=== PATIENT | male | born 1995 | race African-American/Black ===

== ENCOUNTER 2019-02-28 17:37 | Emergency (ER) | payer OTHER ==
[2019-02-28 18:09] LABS: Absolute Monocytes 2.7 K/uL (0.1-1.3); Absolute Neutrophil 8.6 K/uL (1.8-8.0); Basophils % 0.9 % (0-1.3); Eosinophils % 6.9 % (0-4.4); Lymphocytes % 38.1 % (15.3-44.8); MPV 9.3 fL (7.6-11.3); Monocytes % 13.1 % (3.3-12.3); RBC Red Blood Cell Count 1.93 M/uL (4.33-5.43)
[2019-02-28] MEDS ORDERED: HYDROMORPHONE HCL 1 MG/ML INJ ONE ×2 (18:13→19:46)
[2019-02-28] MEDS ORDERED: ONDANSETRON 4 MG/2 ML VIAL ONE (18:13)
[2019-02-28] MEDS ORDERED: NA CHLORIDE 0.9% 1,000 ML ONE ×2 (18:13→20:23)
[2019-02-28 18:14] LABS: Hematocrit 18.3 % (39.6-49.0)
[2019-02-28 18:18] LABS: Protime INR 1.17
--- NOTE | 2019-02-28 18:54 | RAD REPORT ---
EXAM DESCRIPTION: Kayleen Single View02/28/2019 6:38 pm CLINICAL HISTORY: Chest pain COMPARISON: none FINDINGS: The upper lobe pulmonary vessels prominent indicative of pulmonary venous hypertension The lungs appear clear of acute infiltrate. The heart is normal size
[2019-02-28 18:55] LABS: ALT/SGPT 26 U/L (12-78); AST/SGOT 98 U/L (15-37); Albumin 4.1 g/dL (3.4-5.0); Alkaline Phosphatase 83 U/L (45-117); BUN Blood Urea Nitrogen 20 mg/dL (7-18); Bicarbonate 21 mmol/L (21-32); Bilirubin Direct 0.3 mg/dL (0-0.2); Glucose Level 88 mg/dL (74-106); Magnesium 2.3 mg/dL (1.8-2.4); NT PRO-BNP 235 pg/mL (<125); Potassium 5.4 mmol/L (3.5-5.1); Protein, Total 7.8 g/dL (6.4-8.2); Sodium Level 138 mmol/L (136-145); Troponin (Emerg Dept Use Only) < 0.02 ng/mL (0.0-0.045)
[2019-02-28 19:29] LABS: Anisocytosis 3+; Blood Morphology Comment NOTED (NOT SEEN); Platelet Estimate ADEQ; Polychromasia 3+; Target Cells 2+
[2019-02-28] MEDS ORDERED: FOLIC ACID 5 MG/ML VIAL ONE (19:35)
[2019-02-28] MEDS ORDERED: CEFTRIAXONE/SWI 1gm 1 GM/10 ML SYR ONE (19:35)
[2019-02-28] MEDS ORDERED: PROMETHAZINE 25 MG/ML VIAL ONE (19:46)
[2019-02-28 19:50] LABS: Urine Bacteria 20-50 /HPF (NONE SEEN); Urine Culture Reflex Order REFLEXED; Urine RBC <5 /HPF (NONE SEEN)
[2019-02-28 19:51] LABS: Urine Blood 2+ (NEG); Urine Glucose NEGATIVE (NEG); Urine Protein 2+ (NEG); Urine pH 5.5 (5.0-7.0)
--- NOTE | 2019-02-28 19:58 | EDPHYS ---
Physician Documentation [facility] Name: Chance Steinberg Jr Age: 23 yrs Sex: Male : 1995 Arrival Date: 02/28/2019 Time: 17:38 Bed 18 Private MD: ED Physician Blaise Bernabe HPI: 02/28 18:06 This 23 yrs old Black Male presents to ER via EMS with complaints of Sickle Cell Crisis.pm1 18:06 The patient or guardian reports chest pain that is located primarily in the mid-sternal pm1 area. The pain does not radiate. Associated signs and symptoms: Pertinent positives: shortness of breath, joint pain and neck pain. The chest pain is described as sharp. Duration: The patient or guardian reports a single episode, that is still ongoing. Modifying factors: The symptoms are alleviated by nothing. the symptoms are aggravated by nothing. Severity of pain: in the emergency department the pain is actually worse. The patient has experienced similar episodes in the past, a few times, Patient with last sickle cell crisis about 2 months ago with presentation of neck pain and joint pain. Onset 1.5 hours prior to arrival. Historical: - Allergies: 17:41 Latex, Natural Rubber; em 17:41 PENICILLINS; em 17:41 Morphine; em 17:41 Keflex; em 17:41 CEPHALOSPORINS; em - PMHx: 17:41 Sickle Cell; Asthma; Anxiety; em - PSHx: 17:41 Cholecystectomy; em - Immunization history:: Adult Immunizations up to date. - Social history:: Smoking status: Patient/guardian denies using tobacco. - Ebola Screening: : Patient negative for fever greater than or equal to 101.5 degrees Fahrenheit, and additional compatible Ebola Virus Disease symptoms Patient denies exposure to infectious person Patient denies travel to an Ebola-affected area in the 21 days before illness onset No symptoms or risks identified at this time. ROS: 18:06 Constitutional: Negative for fever, chills, and weight loss, Eyes: Negative for injury, pm1 pain, redness, and discharge, ENT: Negative for injury, pain, and discharge, Neck: Negative for injury, pain, and swelling. 18:06 Abdomen/GI: Negative for abdominal pain, nausea, vomiting, diarrhea, and constipation, Back: Negative for injury and pain, : Negative for injury, bleeding, discharge, and swelling, MS/Extremity: Negative for injury and deformity, Skin: Negative for injury, rash, and discoloration, Neuro: Negative for headache, weakness, numbness, tingling, and seizure. 18:06 Cardiovascular: Positive for chest pain, Negative for edema, palpitations. 18:06 Respiratory: Positive for shortness of breath, Negative for cough, wheezing. Exam: 18:06 Constitutional: This is a well developed, well nourished patient who is awake, alert, pm1 and in no acute distress. Head/Face: Normocephalic, atraumatic. Eyes: Pupils equal round and reactive to light, extra-ocular motions intact. Lids and lashes normal. Conjunctiva and sclera are non-icteric and not injected. Cornea within normal limits. Periorbital areas with no swelling, redness, or edema. ENT: Nares patent. No nasal discharge, no septal abnormalities noted. Tympanic membranes are normal and external auditory canals are clear. Oropharynx with no redness, swelling, or masses, exudates, or evidence of obstruction, uvula midline. Mucous membranes moist. Neck: Trachea midline, no thyromegaly or masses palpated, and no cervical lymphadenopathy. Supple, full range of motion without nuchal rigidity, or vertebral point tenderness. No Meningismus. 18:06 Cardiovascular: Regular rate and rhythm with a normal S1 and S2. No gallops, murmurs, or rubs. Normal PMI, no JVD. No pulse deficits. Respiratory: Lungs have equal breath sounds bilaterally, clear to auscultation and percussion. No rales, rhonchi or wheezes noted. No increased work of breathing, no retractions or nasal flaring. Abdomen/GI: Soft, non-tender, with normal bowel sounds. No distension or tympany. No guarding or rebound. No evidence of tenderness throughout. Back: No spinal tenderness. No costovertebral tenderness. Full range of motion. Skin: Warm, dry with normal turgor. Normal color with no rashes, no lesions, and no evidence of cellulitis. MS/ Extremity: Pulses equal, no cyanosis. Neurovascular intact. Full, normal range of motion. 18:06 Chest/axilla: Inspection: normal, Palpation: crepitus, is not appreciated, tenderness, that is moderate, of the just to the right of distal aspect of sternum, that totally reproduces the patient's complaints. 18:06 Neuro: Orientation: is normal, Motor: is normal, moves all fours, Sensation: is normal, no obvious gross deficits. Vital Signs: 17:41 BP 130 / 77; Pulse 105; Resp 22; Temp 99.9(O); Pulse Ox 95% on 2 lpm NC; Weight 65.77 em kg; Height 5 ft. 11 in. (180.34 cm); Pain 10/10; 18:41 BP 116 / 60; Pulse 102; Resp 29; Temp 99.6; Pulse Ox 100% on R/A; mh5 19:37 BP 134 / 72; Pulse 97; Resp 22; Pulse Ox 100% on 2 lpm NC; Pain 8/10; ed1 21:25 BP 112 / 48; Pulse 72; Resp 18; Temp 97.9(TE); Pulse Ox 100% on 2 lpm NC; Pain 6/10; ed1 22:20 BP 116 / 72; Pulse 79; Resp 20; Pulse Ox 100% on 2 lpm NC; Pain 9/10; ed1 23:01 BP 120 / 61; Pulse 76; Resp 20; Pulse Ox 100% on 2 lpm NC; Pain 10/10; ed1 17:41 Body Mass Index 20.22 (65.77 kg, 180.34 cm) em MDM: 17:41 Patient medically screened. pm1 19:12 ED course: Discussed patient with Dr. Bernabe, recommend folic acid, Rocephin, and pm1 transfer to [facility] for sickle cell crisis. No need for blood transfusion now. 19:53 Data reviewed: vital signs. Data interpreted: Pulse oximetry: on room air is 100 %. pm1 Interpretation: normal. Counseling: I had a detailed discussion with the patient and/or guardian regarding: the historical points, exam findings, and any diagnostic results supporting the discharge/admit diagnosis, lab results, radiology results, the need to transfer to another facility, Transferring to [facility] due to Shelter contract. 21:43 Physician consultation: MD Salinas was contacted at 21:44, regarding regarding pm1 transfer, patient's condition, and will see patient. 02/28 17:49 Order name: Basic Metabolic Panel pm1 02/28 17:49 Order name: CBC with Diff; Complete Time: 19:29 pm1 02/28 17:49 Order name: LFT's; Complete Time: 19:28 pm1 02/28 17:49 Order name: Magnesium; Complete Time: 19:28 pm1 02/28 17:49 Order name: NT PRO-BNP; Complete Time: 19:28 pm1 02/28 17:49 Order name: PT-INR; Complete Time: 19:01 pm1 02/28 17:49 Order name: Troponin (emerg Dept Use Only); Complete Time: 19:28 pm1 02/28 17:49 Order name: Retic Count; Complete Time: 19:29 pm1 02/28 17:49 Order name: LDH; Complete Time: 19:28 pm1 02/28 17:50 Order name: Basic Metabolic Panel; Complete Time: 19:28 EDIA 02/28 17:50 Order name: Type And Screen; Complete Time: 21:15 pm1 02/28 18:16 Order name: Blood Culture Adult (2) pm1 02/28 18:17 Order name: Manual Differential; Complete Time: 19:29 EDIA 02/28 19:02 Order name: Urine Microscopic Only; Complete Time: 20:45 pm1 02/28 17:49 Order name: XRAY Chest (1 view); Complete Time: 19:01 pm1 02/28 19:39 Order name: Urine Dipstick--Ancillary (enter results); Complete Time: 20:45 [facility] 02/28 19:49 Order name: Antibody Identification; Complete Time: 21:15 EDMS 02/28 19:51 Order name: Urine Culture [facility] 02/28 19:56 Order name: ABO/RH no charge [facility] 02/28 21:04 Order name: Prewarm Antibody Screening; Complete Time: 21:15 EDIA 02/28 17:49 Order name: EKG; Complete Time: 17:50 pm1 02/28 17:49 Order name: Cardiac monitoring; Complete Time: 18:51 pm1 02/28 17:49 Order name: EKG - Nurse/Tech; Complete Time: 18:51 pm1 02/28 17:49 Order name: IV Saline Lock; Complete Time: 18:51 pm1 02/28 17:49 Order name: Labs collected and sent; Complete Time: 18:51 pm1 02/28 17:49 Order name: O2 Per Protocol; Complete Time: 18:51 pm1 02/28 17:49 Order name: O2 Sat Monitoring; Complete Time: 18:51 pm1 02/28 19:02 Order name: Urine Dipstick-Ancillary (obtain specimen); Complete Time: 19:25 pm1 Administered Medications: 18:35 Drug: Zofran 4 mg Route: IVP; Site: right antecubital; ss 19:27 Follow up: Response: No adverse reaction; Nausea unchanged ed1 18:40 Drug: NS 0.9% 1000 ml Route: IV; Rate: 1000 ml; Site: right antecubital; ss 18:40 Drug: Dilaudid 1 mg Route: IVP; Site: right antecubital; ss 19:29 Follow up: Response: No adverse reaction; Pain is unchanged, physician notified ed1 19:26 Drug: foLIC Acid 1 mg Route: IVPB; Site: right antecubital; ed1 19:30 Follow up: Response: No adverse reaction; IV Status: Completed infusion ed1 19:26 Drug: Rocephin 1 grams Route: IV; Rate: calculated rate; Site: right antecubital; ed1 19:45 Follow up: Response: No adverse reaction; IV Status: Completed infusion; IV Intake: [id number] 19:36 Drug: Phenergan 12.5 mg Route: IVP; Site: right antecubital; ed1 20:00 Follow up: Response: No adverse reaction; Nausea is decreased ed1 19:36 Drug: Dilaudid 1 mg Route: IVP; Site: right antecubital; ed1 20:00 Follow up: Response: No adverse reaction; Pain is decreased ed1 20:14 Drug: Kayexalate 30 grams Route: PO; ak1 21:00 Follow up: Response: No adverse reaction; No adverse reaction; No output at this time ed1 20:14 Drug: NS 0.9% 1000 ml Route: IV; Rate: 125 ml/hr; Site: right antecubital; ak1 03/01 00:25 Follow up: IV Status: Infusion continued upon transfer ed1 02/28 23:14 Drug: Dilaudid 0.5 mg Route: IVP; Site: right antecubital; ed1 03/01 00:25 Follow up: Response: No adverse reaction; Pain is decreased ed1 Disposition: 07:50 Co-signature as Attending Physician, Blaise Bernabe MD I agree with the assessment and radha plan of care. Disposition: 02/28/19 19:58 Transfer ordered to [facility]. Diagnosis are Other sickle-cell disorders with crisis, unspecified, Chest pain, unspecified. - Reason for transfer: Private Physician at Transferring Hospital. - Accepting physician is [facility]. - Condition is Stable. - Problem is new. - Symptoms have improved. Signatures: Dispatcher [employer] EDBlaise Galvez MD MD cha Munoz, Edgar, SUPERVISOR SAWMILL SUPERVISOR SAWMILL Krista Michele, RN RN ss Meseret Whittington RN RN ed1 Gracie Pinto, RN RN ak1 Thierry Mcdaniel, MFT MFT pm1 Corrections: (The following items were deleted from the chart) 00:26 02/28 19:58 02/28/2019 19:58 Transfer ordered to [facility]. Diagnosis is Other ed1 sickle-cell disorders with crisis, unspecified; Chest pain, unspecified. Reason for transfer: Private Physician at Transferring [facility]. Accepting physician is [facility]. Condition is Stable. Problem is new. Symptoms have improved. pm1
--- NOTE | 2019-02-28 19:58 | ER ---
Nurse's Notes [facility] Name: Chance Steinberg Jr Age: 23 yrs Sex: Male : 1995 Arrival Date: 02/28/2019 Time: 17:38 Bed 18 Private MD: Diagnosis: Other sickle-cell disorders with crisis, unspecified;Chest pain, unspecified Presentation: 02/28 17:38 Presenting complaint: EMS states: called out to [facility] for sickle cell crisis, pt em reports pain in joints, chest pain and SOB, pt 95% on 2 L via NC. Transition of care: patient was not received from another setting of care. Onset of symptoms was February 28, 2019. Risk Assessment: Do you want to hurt yourself or someone else? Patient reports no desire to harm self or others. Initial Sepsis Screen: Does the patient meet any 2 criteria? HR > 90 bpm. No. Patient's initial sepsis screen is negative. Does the patient have a suspected source of infection? No. Patient's initial sepsis screen is negative. Care prior to arrival: None. 17:38 Method Of Arrival: EMS: [facility] em 17:43 Acuity: CLAUDE 3 ss Triage Assessment: 17:41 General: Appears in no apparent distress. uncomfortable, Behavior is calm, cooperative. em Pain: Complains of pain in chest Pain currently is 10 out of 10 on a pain scale. Historical: - Allergies: 17:41 Latex, Natural Rubber; em 17:41 PENICILLINS; em 17:41 Morphine; em 17:41 Keflex; em 17:41 CEPHALOSPORINS; em - PMHx: 17:41 Sickle Cell; Asthma; Anxiety; em - PSHx: 17:41 Cholecystectomy; em - Immunization history:: Adult Immunizations up to date. - Social history:: Smoking status: Patient/guardian denies using tobacco. - Ebola Screening: : Patient negative for fever greater than or equal to 101.5 degrees Fahrenheit, and additional compatible Ebola Virus Disease symptoms Patient denies exposure to infectious person Patient denies travel to an Ebola-affected area in the 21 days before illness onset No symptoms or risks identified at this time. Screenin:45 Abuse screen: Denies threats or abuse. Nutritional screening: No deficits noted. em Tuberculosis screening: No symptoms or risk factors identified. Fall Risk None identified. Assessment: 17:41 General: Appears uncomfortable, Behavior is cooperative, restless. Pain: Complains of em pain in chest Pain currently is 10 out of 10 on a pain scale. Neuro: Level of Consciousness is awake, alert, obeys commands, Oriented to person, place, time, situation. Cardiovascular: Capillary refill < 3 seconds Patient's skin is warm and dry. Rhythm is sinus tachycardia. Respiratory: Airway is patent Respiratory effort is even, Respiratory pattern is tachypnea. GI: Abdomen is flat, Patient currently denies nausea, vomiting. Derm: Skin is intact, is healthy with good turgor, Skin is pink, warm \T\ dry. Musculoskeletal: Capillary refill < 3 seconds, Range of motion: intact in all extremities. 17:45 General: The previous assessment is accurate, call light remains within reach. ss 18:00 Reassessment: unable to get IV access, provider notified. em 19:00 Reassessment: Patient appears in no apparent distress at this time. Patient and/or em family updated on plan of care and expected duration. Pain level reassessed. Patient is alert, oriented x 3, equal unlabored respirations, skin warm/dry/pink. Patient states feeling better. 19:37 Reassessment: Patient and/or family updated on plan of care and expected duration. Pain ed1 level reassessed. Patient is alert, oriented x 3, equal unlabored respirations, skin warm/dry/pink. Patient states symptoms have not improved. GI: Pt is actively vomiting clear fluid. 21:25 Reassessment: Patient appears in no apparent distress at this time. Patient and/or ed1 family updated on plan of care and expected duration. Pain level reassessed. Patient is alert, oriented x 3, equal unlabored respirations, skin warm/dry/pink. Patient states feeling better. Patient states symptoms have improved. GI: Patient currently denies nausea. 21:52 Reassessment: Report given to Annmarie CAMPBELL at [facility]. ed1 22:20 Reassessment: Patient and/or family updated on plan of care and expected duration. Pain ed1 level reassessed. Patient is alert, oriented x 3, equal unlabored respirations, skin warm/dry/pink. Patient states symptoms have not improved. 22:52 Reassessment: Patient and/or family updated on plan of care and expected duration. Pain ed1 level reassessed. Patient is alert, oriented x 3, equal unlabored respirations, skin warm/dry/pink. Pt reports pain. Thierry notified. No new orders received at this time Patient states symptoms have not improved. Vital Signs: 17:41 BP 130 / 77; Pulse 105; Resp 22; Temp 99.9(O); Pulse Ox 95% on 2 lpm NC; Weight 65.77 em kg; Height 5 ft. 11 in. (180.34 cm); Pain 10/10; 18:41 BP 116 / 60; Pulse 102; Resp 29; Temp 99.6; Pulse Ox 100% on R/A; mh5 19:37 BP 134 / 72; Pulse 97; Resp 22; Pulse Ox 100% on 2 lpm NC; Pain 8/10; ed1 21:25 BP 112 / 48; Pulse 72; Resp 18; Temp 97.9(TE); Pulse Ox 100% on 2 lpm NC; Pain 6/10; ed1 22:20 BP 116 / 72; Pulse 79; Resp 20; Pulse Ox 100% on 2 lpm NC; Pain 9/10; ed1 23:01 BP 120 / 61; Pulse 76; Resp 20; Pulse Ox 100% on 2 lpm NC; Pain 10/10; ed1 17:41 Body Mass Index 20.22 (65.77 kg, 180.34 cm) em ED Course: 17:38 Patient arrived in ED. em 17:41 Thierry Mcdaniel, JUNIOR ACCOUNTING CLERK is PHCP. pm1 17:41 Blaise Bernabe MD is Attending Physician. pm1 17:41 Arm band placed on. em 17:44 Triage completed. ss 17:45 Patient has correct armband on for positive identification. Placed in gown. Bed in low em position. Call light in reach. correctional officers at bedside. phototypesetting equipment monitor on. Pulse ox on. NIBP on. 17:55 Missed attempt(s): 22 gauge in left in right forearm. antecubital area. Bleeding em controlled, band aid applied, catheter tip intact. 18:33 Kushal Bautista LVN is Primary Nurse. em 18:36 Accessed peripheral vein via ultrasound, utilizing dynamic ultrasound technique using la1 18G Sureflo IV catheter Good blood return. Flushes easily. 18:38 XRAY Chest (1 view) In Process Unspecified. EDMS 20:51 Primary Nurse role handed off by Kushal Bautista LVN ed1 20:51 Meseret Whittington, ADRIAN is Primary Nurse. ed1 21:25 Resting quietly. transfer approval from receiving facility. ed1 22:21 transfer transportation to receiving facility. ed1 22:53 transfer transportation to receiving facility. ed1 06 00:24 No provider procedures requiring assistance completed. Patient transferred, IV remains ed1 in place. intact, No redness/swelling at site. Administered Medications: 02/28 18:35 Drug: Zofran 4 mg Route: IVP; Site: right antecubital; ss 19:27 Follow up: Response: No adverse reaction; Nausea unchanged ed1 18:40 Drug: NS 0.9% 1000 ml Route: IV; Rate: 1000 ml; Site: right antecubital; ss 18:40 Drug: Dilaudid 1 mg Route: IVP; Site: right antecubital; ss 19:29 Follow up: Response: No adverse reaction; Pain is unchanged, physician notified ed1 19:26 Drug: foLIC Acid 1 mg Route: IVPB; Site: right antecubital; ed1 19:30 Follow up: Response: No adverse reaction; IV Status: Completed infusion ed1 19:26 Drug: Rocephin 1 grams Route: IV; Rate: calculated rate; Site: right antecubital; ed1 19:45 Follow up: Response: No adverse reaction; IV Status: Completed infusion; IV Intake: [id number] 19:36 Drug: Phenergan 12.5 mg Route: IVP; Site: right antecubital; ed1 20:00 Follow up: Response: No adverse reaction; Nausea is decreased ed1 19:36 Drug: Dilaudid 1 mg Route: IVP; Site: right antecubital; ed1 20:00 Follow up: Response: No adverse reaction; Pain is decreased ed1 20:14 Drug: Kayexalate 30 grams Route: PO; ak1 21:00 Follow up: Response: No adverse reaction; No adverse reaction; No output at this time ed1 20:14 Drug: NS 0.9% 1000 ml Route: IV; Rate: 125 ml/hr; Site: right antecubital; ak1 03/01 00:25 Follow up: IV Status: Infusion continued upon transfer ed1 02/28 23:14 Drug: Dilaudid 0.5 mg Route: IVP; Site: right antecubital; ed1 03/01 00:25 Follow up: Response: No adverse reaction; Pain is decreased ed1 Intake: 02/28 19:45 IV: 10ml; Total: 10ml. ed1 Outcome: 19:58 ER care complete, transfer ordered by . pm1 03/01 00:24 Transferred by ground EMS [facility]. ed1 Condition: stable Discharge instructions given to patient, police, Instructed on the need for transfer, Demonstrated understanding of instructions. 00:26 Patient left the ED. ed1 Signatures: Dispatcher [employer] EDMS Kushal Bautista, SPECIAL SERVICES COORDINATOR SPECIAL SERVICES COORDINATOR Krista Michele RN RN ss Riggs, Erika, RN RN ed1 Cipriano Rider RN RN angi1 Gracie Pinto RN RN ak1 Thierry Mcdaniel, JUNIOR ACCOUNTING CLERK JUNIOR ACCOUNTING CLERK pm1 Leslie Guerra [facility] Corrections: (The following items were deleted from the chart) 02/28 18:49 18:41 BP 116 / 60; Pulse 102bpm; Resp 29bpm; Pulse Ox 100% RA; mh5 mh5 21:56 21:25 BP 112 / 48; Pulse 72bpm; Resp 18bpm; Pulse Ox 100% RA; Temp 97.9F Temporal; Pain ed1 03/08; ed1
[2019-02-28] MEDS ORDERED: SOD POLYSTYREN SUL 15 GM/60 ML UCUP ONE (20:23)
[2019-02-28] MEDS ORDERED: HYDROMORPHONE HCL 0.5 MG/0.5 ML INJ ONE (23:26)
--- NOTE | 2019-03-01 06:28 | EKG ---
Test Date: 2019-02-28 Test Time: 20:57:29 Supervisor Phosphatic Fertilizer: EUN MEASUREMENT RESULTS: Intervals: Rate: 79 HI: 162 QRSD: 98 QT: 386 QTc: 442 Baden: P: 47 HI: 162 QRS: 43 T: 33 INTERPRETIVE STATEMENTS: Normal sinus rhythm Normal ECG No previous ECG available for comparison Electronically Signed On 03-01-19 06:27:26 CDT by Cody Neves
== END 2019-03-01 00:26 | disposition short-term general hospital (02) ==
LOC: ER 17:37
DX: D57.819 Other sickle-cell disorders with crisis, unspecified (principal); Z88.0 Allergy status to penicillin; Z88.3 Allergy status to other anti-infective agents; Z88.5 Allergy status to narcotic agent; Z88.8 Allergy status to other drugs, medicaments and biological substances; Z91.040 Latex allergy status; Z91.048 Other nonmedicinal substance allergy status
CPT/HCPCS: 36415; 71045; 80048; 80076; 81003; 81015; 83615; 83735; 83880; 84484; 85025; 85044; 85610; 86850; 86870; 86900; 86901; 87040; 87086; 87088; 93005; 96361; 96365; 96375; 99285; J0696; J1170; J2405; J2550; J7030